=== PATIENT | female | born 1930 | race Caucasian/White ===

== ENCOUNTER → 2019-07-06 | Outpatient (CLI) | payer OTHER ==
[~2019-07-06] MED LIST: AMLO10TA7 PO; ASPI81TA40 PO; ATOR40TA71 PO; CALC-1085 PO; CHOL50004 PO; CLOP75TA32 PO; DOCU-116 PO; FOLI1TAB15 PO; LABE200T5 PO; LEVO75TA4 PO; LOSA50TA64 PO; VITA100049 PO
== END | disposition home or self-care (01) ==
LOC: RAH 14:38
PROVIDERS: ATTEND Internal Medicine
DX: N63.13 Unspecified lump in the right breast, lower outer quadrant (principal); N63.10 Unspecified lump in the right breast, unspecified quadrant; Z85.3 Personal history of malignant neoplasm of breast
CPT/HCPCS: 76641; 77065

== ENCOUNTER → 2019-07-20 | Outpatient (CLI) | payer OTHER ==
[2019-07-20 10:13] LABS: BASOPHILS % (AUTO) 0.9 % (0.0-5.0); EOSINOPHILS % (AUTO) 5.9 % (0.0-8.0); HEMATOCRIT 36.4 % (36-48); LYMPHOCYTES % (AUTO) 18.2 % (21.0-51.0); MEAN CORPUSCULAR HEMOGLOBIN 28.6 pg (27.0-33.0); MEAN CORPUSCULAR HGB CONC 30.8 g/dL (32.0-36.0); MEAN CORPUSCULAR VOLUME 93.1 fL (79-99); MONOCYTES % (AUTO) 7.5 % (3.0-13.0); PLATELET COUNT (AUTO) 163 K/uL (130-400); RED BLOOD CELL COUNT(AUTO) 3.91 MIL/uL (4.00-5.50); RED CELL DISTRIBUTION WIDTH 13.7 % (11.0-15.5); WHITE BLOOD COUNT (AUTO) 4.4 K/uL (4.8-10.8)
[2019-07-20 10:24] LABS: INR 0.99 (0.85-1.15); PARTIAL THROMBOPLASTIN TIME 27.6 SEC (26.3-35.5); PROTHROMBIN TIME 10.4 SEC (9.6-11.6)
[2019-07-20 10:34] LABS: ALBUMIN 3.4 g/dL (3.5-5.0); BILIRUBIN,TOTAL 0.7 mg/dL (0.2-1.0); CREATININE 1.4 mg/dL (0.5-1.5); POTASSIUM 4.9 mmol/L (3.5-5.1); THYROID STIMULATING HORMONE 6.79 uIU/mL (0.36-3.74); TOTAL PROTEIN, SERUM 6.2 g/dL (6.0-8.3)
--- NOTE | 2019-07-20 11:45 | NUR ---
U/S GUIDED BIOPSY RIGHT BREAST LUMP PROCEDURE PERFORMED BY DR. ESPINAL. PUNCTURE SITE RIGHT BREAST 6 O'CLOCK AREA. PATIENT TOLERATED PROCEDURE WELL. SPECIMEN X 3 COLLECTED. END OF PROCEDURE AT 1150. TISSUE MARKER PLACED TO SITE, BIOPSY NEEDLE REMOVED AND DRESSING APPLIED. NO BLEEDING NOTED. DISCHARGE INSTRUCTIONS GIVEN TO PATIENT AND FAMILY. PT DISCHARGED AMBULATORY, STABLE, AAO X 3, WITH NO C/O PAIN. SPECIMEN SENT TO LAB.
[2019-07-20 14:52] LABS: HEMOGLOBIN A1C 5.3 % (4.0-6.0)
== END ==
LOC: RAH 09:23
PROVIDERS: ATTEND Internal Medicine
DX: N63.15 Unspecified lump in the right breast, overlapping quadrants (principal); Z79.82 Long term (current) use of aspirin; Z79.899 Other long term (current) drug therapy; Z82.49 Family history of ischemic heart disease and other diseases of the circulatory system; Z82.3 Family history of stroke
CPT/HCPCS: 19083; 36415; 80053; 80061; 82043; 83036; 84443; 85025; 85610; 85730; A4215 ×3

== ENCOUNTER → 2019-08-24 | Outpatient (CLI) | payer OTHER ==
[~2019-08-24] MED LIST changes: +REGADENOSON 0.4 MG/5 ML PF SYG IVP SCH
== END | disposition home or self-care (01) ==
LOC: SHCH 09:07
PROVIDERS: ATTEND Internal Medicine Cardiovascular Disease
DX: Z01.810 Encounter for preprocedural cardiovascular examination (principal); I25.10 Atherosclerotic heart disease of native coronary artery without angina pectoris
CPT/HCPCS: 78452; 93017; 96374; A9500 ×2; J2785

== ENCOUNTER 2019-09-13 17:44 | Inpatient (IN) | payer OTHER ==
[~2019-09-13] VITALS: Ht 167.6 cm; Wt 59.8 kg
[~2019-09-13 17:44] MED LIST changes: -REGADENOSON 0.4 MG/5 ML PF SYG IVP SCH
[2019-09-13] MEDS ORDERED: ONDANSETRON HCL 4 MG/2 ML VIAL ONE (17:56)
[2019-09-13] MEDS ORDERED: AZITHROMYCIN 500MG+NS 250ML 250 ML IV ONE (17:57)
[2019-09-13] MEDS ORDERED: SODIUM CHLORIDE 0.9% 1000ML 1,000 ML IV ONE (17:57)
[2019-09-13] MEDS ORDERED: CEFTRIAXONE SODIUM 2 GM VIAL ONE (17:57)
[2019-09-13 18:16] LABS: BASOPHILS % (AUTO) 0.1 % (0.0-5.0); EOSINOPHILS % (AUTO) 0.6 % (0.0-8.0); HEMATOCRIT 38.2 % (36-48); LYMPHOCYTES % (AUTO) 7.4 % (21.0-51.0); MEAN CORPUSCULAR HEMOGLOBIN 28.1 pg (27.0-33.0); MEAN CORPUSCULAR HGB CONC 31.4 g/dL (32.0-36.0); MEAN CORPUSCULAR VOLUME 89.5 fL (79-99); MONOCYTES % (AUTO) 5.4 % (3.0-13.0); NEUTROPHILS % (AUTO) 86.1 % (40.0-77.0); PLATELET COUNT (AUTO) 210 K/uL (130-400); RED BLOOD CELL COUNT(AUTO) 4.27 MIL/uL (4.00-5.50); RED CELL DISTRIBUTION WIDTH 13.2 % (11.0-15.5); WHITE BLOOD COUNT (AUTO) 6.9 K/uL (4.8-10.8)
[2019-09-13] MEDS ORDERED: IPRATROPIUM/ALBUTEROL SULFATE 3 ML SOLUTION IH ONE ×2 (18:30→19:45)
[2019-09-13 18:31] LABS: INR 0.94 (0.85-1.15); PARTIAL THROMBOPLASTIN TIME 33.8 SEC (26.3-35.5); PROTHROMBIN TIME 10.2 SEC (9.6-11.6)
[2019-09-13 18:32] LABS: CARBON DIOXIDE 22 mmol/L (21-32); CHLORIDE 104 mmol/L (101-111); CREATININE 1.5 mg/dL (0.5-1.5); GLOMERULAR FILTR. RATE CALC 35 mL/min (>60); GLUCOSE,RANDOM 122 mg/dL (70-105); POTASSIUM 3.9 mmol/L (3.5-5.1); SODIUM SERUM 141 mmol/L (136-145); UREA NITROGEN, BLOOD 33 mg/dL (7-18)
[2019-09-13] MEDS ORDERED: METHYLPREDNISOLONE SOD SUCC 125MG/2ML VIAL ONE (18:38)
[2019-09-13 18:43] LABS: ALANINE AMINOTRANSFERASE 20 U/L (12-78); ALBUMIN 3.5 g/dL (3.5-5.0); ASPARTATE AMINOTRANSFERASE 22 U/L (10-37); BILIRUBIN,TOTAL 0.4 mg/dL (0.2-1.0); CREATINE KINASE, TOTAL 43 U/L (21-232); MYOGLOBIN 102 ng/mL (10-92); TOTAL PROTEIN, SERUM 7.1 g/dL (6.0-8.3); TROPONIN I < 0.04 ng/mL (0.00-0.06)
[2019-09-13 18:47] LABS: ABG BASE EXCESS -5.8 mmol/L (-2.0-3.0); ABG HCO3 18.5 mmol/L (21.0-28.0); ABG OXYGEN SATURATION 93.2 % (95.0-99.0); ABG PCO2 33 mmHg (32-45)
[2019-09-13] MEDS ORDERED: LABETALOL 20 MG/4 ML DISP.SYRIN IV ONE (19:06)
[2019-09-13] MEDS ORDERED: OSELTAMIVIR PHOSPHATE 75 MG CAP ONE (19:34)
[2019-09-13 19:37] LABS: BAND NEUTROPHILS % (MANUAL) 7 % (0-2); EOSINOPHILS % (MANUAL) 1 % (1-6); LYMPHOCYTES % (MANUAL) 7 % (22-44); MONOCYTES % (MANUAL) 6 % (2-9); SEGMENTED NEUTROPHILS % 79 % (40-70)
[2019-09-13 19:38] LABS: MAN.DIFF COMMENT-IMPRESSION MANUAL DIFFERENTIAL; PLATELET MORPHOLOGY COMMENT ADEQUATE
[2019-09-13 19:45] LABS: APPEARANCE,URINE Cloudy (CLEAR); BILIRUBIN,URINE Negative (NEGATIVE); COLOR,URINE Yellow (YELLOW); GLUCOSE, URINE (UA) Negative (NEGATIVE); KETONES,URINE Trace mg/dL (NEGATIVE); LEUKOCYTE ESTERASE ,URINE Trace (NEGATIVE); NITRATE,URINE Negative (NEGATIVE); OCCULT BLOOD,URINE Negative (NEGATIVE); PROTEIN,URINE POS 1+ mg/dL (NEGATIVE); UROBILINOGEN,URINE 0.2 mg/dL (0.2-1.0)
[2019-09-13 20:27] LABS: BACTERIA,URINE Few /HPF (None Seen); RBC,URINE None Seen /HPF (0-1)
[2019-09-13 20:28] LABS: AMORPHOUS SEDIMENT,UR Few /LPF (None Seen)
[2019-09-13] MEDS ORDERED: ONDANSETRON HCL 4 MG/2 ML VIAL IV PRN (20:45)
[2019-09-13] MEDS ORDERED: MORPHINE SULFATE 2 MG/ML 1ML SYG IV PRN (20:45)
[2019-09-13] MEDS ORDERED: HYDRALAZINE HCL 20 MG/ML VIAL IV PRN (20:45)
[2019-09-13] MEDS ORDERED: LACTULOSE 20 GM/30 ML UDCUP PO PRN (20:45)
[2019-09-13] MEDS ORDERED: AZITHROMYCIN 500MG+NS 250ML 250 ML IV SCH (20:45)
[2019-09-13] MEDS ORDERED: CEFTRIAXONE SODIUM 1 GM IV SCH (20:45)
[2019-09-13] MEDS ORDERED: ACETAMINOPHEN 325 MG TAB PO PRN ×2 (20:45)
[2019-09-13] MEDS: METHYLPREDNISOLONE SOD SUCC 125MG/2ML VIAL IV SCH (20:45)
[2019-09-13] MEDS: OSELTAMIVIR PHOSPHATE 75 MG CAP PO SCH (21:00)
[2019-09-13] MEDS: FAMOTIDINE 20MG TAB 20 MG TAB PO SCH (21:00)
[2019-09-13] MEDS: IPRATROPIUM/ALBUTEROL SULFATE 3 ML SOLUTION IH SCH (22:16)
[2019-09-13] MEDS ORDERED: FAMOTIDINE 20MG TAB 20 MG TAB ONE (22:37)
[2019-09-13] MEDS ORDERED: ACETAMINOPHEN 325 MG TAB ONE (22:37)
[2019-09-13] MEDS ORDERED: IOHEXOL-350 75 ML VIAL IV ONE (23:16)
[2019-09-14] MEDS ORDERED: HEPARIN 25000 UNITS/250 ML D5W 250 ML IV SCH
[2019-09-14] MEDS ORDERED: HEPARIN 25000 UNITS/250 ML D5W 250 ML IV ONE (00:28)
[2019-09-14] MEDS ORDERED: HEPARIN SODIUM 5000UNIT/ML 1ML VIAL ONE (00:46)
[2019-09-14] MEDS: IPRATROPIUM/ALBUTEROL SULFATE 3 ML SOLUTION IH SCH ×6 (02:00→21:31)
[2019-09-14 04:05] LABS: ABG BASE EXCESS -6.9 mmol/L (-2.0-3.0); ABG HCO3 16.9 mmol/L (21.0-28.0); ABG OXYGEN SATURATION 97.4 % (95.0-99.0); ABG PCO2 30 mmHg (32-45)
[2019-09-14 05:44] LABS: BASOPHILS % (AUTO) 0.1 % (0.0-5.0); LYMPHOCYTES % (AUTO) 2.6 % (21.0-51.0); MEAN CORPUSCULAR HGB CONC 31.7 g/dL (32.0-36.0); MEAN CORPUSCULAR VOLUME 88.5 fL (79-99); MONOCYTES % (AUTO) 3.9 % (3.0-13.0); NEUTROPHILS % (AUTO) 93.2 % (40.0-77.0); PLATELET COUNT (AUTO) 184 K/uL (130-400); RED BLOOD CELL COUNT(AUTO) 4.07 MIL/uL (4.00-5.50); RED CELL DISTRIBUTION WIDTH 13.2 % (11.0-15.5); WHITE BLOOD COUNT (AUTO) 8.6 K/uL (4.8-10.8)
[2019-09-14 06:16] LABS: CREATININE 1.3 mg/dL (0.5-1.5); POTASSIUM 4.1 mmol/L (3.5-5.1)
[2019-09-14] MEDS ORDERED: HYDRALAZINE HCL 20 MG/ML VIAL ONE (06:29)
[2019-09-14 07:18] LABS: INR 1.06 (0.85-1.15); PROTHROMBIN TIME 11.4 SEC (9.6-11.6)
[2019-09-14] MEDS ORDERED: METHYLPREDNISOLONE SOD SUCC 40MG/ML 1ML ONE (07:22)
[2019-09-14] MEDS ORDERED: OSELTAMIVIR PHOSPHATE 75 MG CAP ONE (07:23)
[2019-09-14] MEDS ORDERED: FAMOTIDINE 20MG TAB 20 MG TAB ONE (07:25)
[2019-09-14 07:54] LABS: PARTIAL THROMBOPLASTIN TIME > 120.0 SEC (26.3-35.5)
[2019-09-14] MEDS: METHYLPREDNISOLONE SOD SUCC 125MG/2ML VIAL IV SCH (08:45)
[2019-09-14] MEDS: OSELTAMIVIR PHOSPHATE 75 MG CAP PO SCH ×2 (09:00→20:23)
[2019-09-14] MEDS: FAMOTIDINE 20MG TAB 20 MG TAB PO SCH ×2 (09:00→20:23)
[2019-09-14] MEDS ORDERED: IPRATROPIUM/ALBUTEROL SULFATE 3 ML SOLUTION IH ONE (10:02)
[2019-09-14 12:00] VITALS: BP 130/46
--- NOTE | 2019-09-14 12:03 | NUR ---
ARRIVAL TO FLOOR ROOM 203. PT IS AAOX3 DENIES CP DENIES SOB DENIES NV. STATES SHE FEELS BETTER THAN LAST NIGHT. ARRIVED WITH HEPARIN GTT PER PROTOCOL. PAPER DOCUMENTATION NOTED IN CHART. PTT RECHECK ORDERED FOR 1500.
--- NOTE | 2019-09-14 12:04 | NUR ---
NOTED RIGHT SIDE CHEST EARNEST DRAIN IN PLACED SUTURED IN PLACE. STATES THAT EARNEST DRAIN IS FROM MASTECTOMY FROM SEP [address] GUTIERREZ. Addendum: 09/14/19 at 1210 by CHRISTY GRIGGS RN RN NOTED RIGHT SIDE CHEST EARNEST DRAIN IN PLACE
--- NOTE | 2019-09-14 12:40 | NUR ---
NOTIFIED DR GUTIERREZ OFFICE REGARDING PATIENT HOSPITALIZED YET HAS APPOINTMENT TOMORROW 09-15-19 FOR FOLLOW UP OF RIGHT MASTECTOMY AND EARNEST DRAIN DR GUTIERREZ OFFICE STAFF MADE AWARE
[2019-09-14] MEDS ORDERED: LOSA100T58 PO (12:54)
[2019-09-14] MEDS ORDERED: BETA15OI19 TP (12:54)
[2019-09-14 15:39] VITALS: BP 143/55
--- NOTE | 2019-09-14 16:09 | NUR ---
HEPARIN GTT ON HOLD FOR 1 HR PER PROTOCOL
--- NOTE | 2019-09-14 16:44 | NUR ---
DR GUTIERREZ PA ROUNDED SAW PATIENT, STATES SHE WILL COME BY TOMORROW TO REMOVE EARNEST DRAIN
--- NOTE | 2019-09-14 17:06 | NUR ---
INITIAL Patient lives with alone. Emergency contact is daughter, Karoline Jones, [phone]. No home services. DME: BPM, cane, standard walker, nebulizer. Patient is able to complete ADL's and drives. PCP is Dr. Cuevas. Pharmacy is [facility] located on [facility]. DCP is home. Addendum: 09/14/19 at 1709 by AKIL HUSAIN SS Amended: Links added.
[2019-09-14] MEDS: BUDESONIDE 0.5 MG/2 ML INH IH SCH (18:37)
[2019-09-14] MEDS: AZITHROMYCIN 500MG+NS 250ML 250 ML IV SCH (20:23)
[2019-09-14] MEDS: CEFTRIAXONE SODIUM 1 GM IV SCH (20:24)
[2019-09-14 20:36] VITALS: BP 133/54
--- NOTE | 2019-09-14 21:20 | NUR ---
hospitalist paged regarding home med reconciliation
[2019-09-15] VITALS (7 sets, daily range): BP systolic 124–190; BP diastolic 50–77
[2019-09-15] MEDS: IPRATROPIUM/ALBUTEROL SULFATE 3 ML SOLUTION IH SCH ×5 (01:12→21:23)
[2019-09-15] MEDS: BUDESONIDE 0.5 MG/2 ML INH IH SCH ×2 (05:04→18:31)
[2019-09-15] MEDS: FAMOTIDINE 20MG TAB 20 MG TAB PO SCH (09:16)
[2019-09-15] MEDS: OSELTAMIVIR PHOSPHATE 75 MG CAP PO SCH ×2 (09:17→20:12)
--- NOTE | 2019-09-15 10:30 | NUR ---
RECEIVED REPORT FROM JARROD KINGSLEY AND TOOK OVER CARE OF PATIENT.
--- NOTE | 2019-09-15 11:00 | NUR ---
SITE CARE COMPLETED TO LEFT ARM AREA IV, IV SITE WITHOUT REDNESS NOTED. PT ON HEPARIN DRIP, NEXT PTT AT 2PM.
--- NOTE | 2019-09-15 14:33 | NUR ---
HEPARIN DRIP DISCONTINUED PER DR. ROBBINS'S ORDER. WILL START LOVENOX TONIGHT. PATIENT INFORMED AND VERBALIZED UNDERSTANDING.
[2019-09-15] MEDS ORDERED: ENOXAPARIN SODIUM 60 MG/0.6 ML SQ SCH ×2 (15:00→21:00)
--- NOTE | 2019-09-15 16:30 | NUR ---
DR. GUTIERREZ I TO SEE PATIENT, UPDATE GIVEN. EARNEST DRAIN REMOVED BY DR. GUTIERREZ. TOLERATED WELL.
[2019-09-15] MEDS: CEFTRIAXONE SODIUM 1 GM IV SCH (20:11)
[2019-09-15] MEDS: AZITHROMYCIN 500MG+NS 250ML 250 ML IV SCH (20:11)
--- NOTE | 2019-09-15 21:22 | NUR ---
patient c/o back pain p lovenox inj patient c/o right lower back pain after lovenox was injected into left lower abdomen bp 156/62 st 113s oxygen sat 98% assess back and did not find any signs of bruising
[2019-09-16] MEDS: IPRATROPIUM/ALBUTEROL SULFATE 3 ML SOLUTION IH SCH ×6 (01:05→21:34)
[2019-09-16 02:38] LABS: ALBUMIN 2.5 g/dL (3.5-5.0); BILIRUBIN,TOTAL 0.2 mg/dL (0.2-1.0); CREATININE 1.5 mg/dL (0.5-1.5); POTASSIUM 3.4 mmol/L (3.5-5.1); TOTAL PROTEIN, SERUM 5.7 g/dL (6.0-8.3)
[2019-09-16 03:50] VITALS: BP 162/64
[2019-09-16 05:45] LABS: BASOPHILS % (AUTO) 0.2 % (0.0-5.0); EOSINOPHILS % (AUTO) 0.7 % (0.0-8.0); HEMATOCRIT 31.3 % (36-48); LYMPHOCYTES % (AUTO) 5.6 % (21.0-51.0); MEAN CORPUSCULAR HEMOGLOBIN 28.9 pg (27.0-33.0); MEAN CORPUSCULAR HGB CONC 32.9 g/dL (32.0-36.0); MEAN CORPUSCULAR VOLUME 87.7 fL (79-99); MONOCYTES % (AUTO) 4.8 % (3.0-13.0); NEUTROPHILS % (AUTO) 87.5 % (40.0-77.0); PLATELET COUNT (AUTO) 245 K/uL (130-400); RED BLOOD CELL COUNT(AUTO) 3.57 MIL/uL (4.00-5.50); RED CELL DISTRIBUTION WIDTH 13.6 % (11.0-15.5); WHITE BLOOD COUNT (AUTO) 10.5 K/uL (4.8-10.8)
[2019-09-16] MEDS: BUDESONIDE 0.5 MG/2 ML INH IH SCH ×2 (07:27→19:03)
[2019-09-16 07:57] VITALS: BP 146/57
[2019-09-16] MEDS ORDERED: ENOXAPARIN SODIUM 60 MG/0.6 ML SQ SCH (09:00)
[2019-09-16] MEDS: OSELTAMIVIR PHOSPHATE 75 MG CAP PO SCH ×2 (09:02→20:25)
[2019-09-16] MEDS: FAMOTIDINE 20MG TAB 20 MG TAB PO SCH ×2 (09:02→21:00)
[2019-09-16] MEDS: LABETALOL HCL 200 MG TABLET PO SCH ×2 (09:08→20:26)
[2019-09-16] MEDS: LEVOTHYROXINE 75 MCG TABLET PO SCH (09:09)
[2019-09-16] MEDS: POTASSIUM CHLORIDE 20 MEQ ERTAB PO SCH (09:10)
--- NOTE | 2019-09-16 11:45 | NUR ---
BLADDER SCANNED PRE VOID MEASUREMENT 636MLS DR. GARCIA AWARE.
[2019-09-16 11:51] VITALS: BP 152/66
--- NOTE | 2019-09-16 11:58 | NUR ---
PT WAS BLADDER SCANNED POST-VOID RESD. 480ML DR. JACKSON CONSULTED FOR URINARY RETENTION.
--- NOTE | 2019-09-16 12:22 | NUR ---
RD NOTIFICATION DIET: HEART HEALTHY. PO INTAKE 50% AND HAS GOOD APPETITE PER PT. NO SIGNIFICANT WEIGHT CHANGES NOTED IN THE PAST, THEREFORE RD UNABLE TO DETERMINE MALNUTRITION STATUS AT THIS TIME. NO COMPLAINTS OF N/V/C/D AT THIS TIME. NO DIFFICULTIES CHEWING OR SWALLOWING FOOD/ LIQUIDS AT THIS TIME. LABS REVIEWED. MEDS REVIEWED. SKIN IS INTACT. RD RECOMMENDS TO ADD ENSURE BID TO DIET ORDER RD WILL CONTINUE TO MONITOR PO INTAKE AND WEIGHT CHANGES Addendum: 09/16/19 at [address] Amended: Links added.
[2019-09-16 14:13] LABS: MEAN CORPUSCULAR HEMOGLOBIN 27.9 pg (27.0-33.0); MEAN CORPUSCULAR HGB CONC 31.6 g/dL (32.0-36.0); MEAN CORPUSCULAR VOLUME 88.4 fL (79-99); PLATELET COUNT (AUTO) 222 K/uL (130-400); RED BLOOD CELL COUNT(AUTO) 3.62 MIL/uL (4.00-5.50); RED CELL DISTRIBUTION WIDTH 13.6 % (11.0-15.5); WHITE BLOOD COUNT (AUTO) 11.1 K/uL (4.8-10.8)
[2019-09-16 15:48] VITALS: BP 150/68
[2019-09-16 20:23] VITALS: BP 195/73
[2019-09-16] MEDS: VITAMIN E 400 UNIT CAPSULE PO SCH (20:25)
[2019-09-16] MEDS: DOCUSATE SODIUM 100 MG CAP PO SCH (20:25)
[2019-09-16] MEDS: ATORVASTATIN CALCIUM 40 MG TABLET PO SCH (20:25)
[2019-09-16] MEDS: FOLIC ACID 1 MG TABLET PO SCH (20:25)
[2019-09-16] MEDS: CALCIUM 600 + VITAMIN D 400 TABLET PO SCH (20:25)
[2019-09-16] MEDS: CEFTRIAXONE SODIUM 1 GM IV SCH (20:26)
[2019-09-16] MEDS: CLOPIDOGREL BISULFATE 75 MG TAB PO SCH (20:26)
[2019-09-16] MEDS: APIXABAN 5 MG TABLET PO SCH ×2 (20:26→20:35)
[2019-09-16] MEDS: AZITHROMYCIN 500MG+NS 250ML 250 ML IV SCH (20:27)
[2019-09-16] MEDS: ***HM***(Cholecalciferol (Vitamin D3) 5,000 UNIT) PO SCH (21:00)
--- NOTE | 2019-09-16 21:35 | NUR ---
refused shirley /keyshawn consult dr mahajan called for update/info on patient informed dr mahajan that patient was refusing shirley catheter he stated that was fine but that if she started to have trouble that we may insert an indwelling shirley catheter explained to patient but she refused
[2019-09-16 23:56] VITALS: BP 167/62
[2019-09-17] MEDS: IPRATROPIUM/ALBUTEROL SULFATE 3 ML SOLUTION IH SCH ×6 (01:57→22:22)
[2019-09-17 03:52] VITALS: BP 159/72
[2019-09-17] MEDS: LEVOTHYROXINE 75 MCG TABLET PO SCH (06:07)
[2019-09-17] MEDS: BUDESONIDE 0.5 MG/2 ML INH IH SCH ×2 (06:59→19:06)
[2019-09-17 07:56] VITALS: BP 169/81
[2019-09-17] MEDS: FAMOTIDINE 20MG TAB 20 MG TAB PO SCH ×2 (09:00→21:00)
[2019-09-17] MEDS: OSELTAMIVIR PHOSPHATE 75 MG CAP PO SCH ×2 (09:16→21:15)
[2019-09-17] MEDS: POTASSIUM CHLORIDE 20 MEQ ERTAB PO SCH (09:17)
[2019-09-17] MEDS: LABETALOL HCL 200 MG TABLET PO SCH ×2 (09:17→21:13)
[2019-09-17] MEDS: APIXABAN 5 MG TABLET PO SCH ×2 (09:18→21:14)
[2019-09-17 11:37] VITALS: BP 145/67
--- NOTE | 2019-09-17 12:00 | NUR ---
PT CARE Using aseptic technique, 16fr shirley catheter inserted with immediate return of cloudy, light julia urine. Pt tolerated with minimal discomfort. Secure to right thigh with stat-geoffrey.
[2019-09-17] MEDS: LINEZOLID 600 MG/ISO-OSM 300 ML IV SCH ×2 (12:20→22:51)
[2019-09-17] MEDS: PHARMACY COMMUNICATION MISC SCH ×2 (12:34→20:34)
--- NOTE | 2019-09-17 13:17 | NUR ---
Nutrition Follow-up: Pt. on Heart Healthy diet with Ensure BID. Pt. reports eating 50-75% of her meals. Labs reviewed(Alb 2.5). SR-17, elastic. LBM: 09/17/2019. Pt. educated on High Calorie High Protein diet and provided with education material. Pt. verbalized understanding. Recommendations: 1) Continue current diet. 2) High Calorie High protein diet education given to patient. 3) Continue to monitor pt's nutritional status. 4) Consult RD as nutrition concerns arise. Addendum: 09/17/19 at 1326 [address] AKIL NÚÑEZ RD Amended: Links added.
[2019-09-17 15:33] VITALS: BP 151/55
--- NOTE | 2019-09-17 18:09 | NUR ---
cm note met with patient and updated on md orders for rehab and iv antibiotic therapy. pt is in agreement and states has been at [facility] in the past and prefers [facility]. choice letter obtained. states she will update her family on plan.
[2019-09-17 20:28] VITALS: BP 162/58
[2019-09-17 20:29] VITALS: BP 182/75
[2019-09-17] MEDS: ***HM***(Cholecalciferol (Vitamin D3) 5,000 UNIT) PO SCH (21:00)
[2019-09-17] MEDS: DOCUSATE SODIUM 100 MG CAP PO SCH (21:00)
[2019-09-17] MEDS: ATORVASTATIN CALCIUM 40 MG TABLET PO SCH (21:14)
[2019-09-17] MEDS: CALCIUM 600 + VITAMIN D 400 TABLET PO SCH (21:14)
[2019-09-17] MEDS: LOSARTAN 100 MG TABLET PO SCH (21:15)
[2019-09-17] MEDS: VITAMIN E 400 UNIT CAPSULE PO SCH (21:15)
[2019-09-17] MEDS: CLOPIDOGREL BISULFATE 75 MG TAB PO SCH (21:15)
[2019-09-17] MEDS: FOLIC ACID 1 MG TABLET PO SCH (21:16)
[2019-09-17] MEDS: AMLODIPINE BESYLATE 5 MG TAB PO SCH (21:17)
--- NOTE | 2019-09-17 21:30 | NUR ---
PT IS FORGETFUL AND HARD OF HEARING. ONE MUST REPEAT MEDICATION NAMES, AND USE OF MEDICATION TO PT MULTIPLE TIMES. CONTINUES TO ASK ABOUT MEDICATIONS WHICH HAVE ALREADY BEEN DISCUSSED WITH PT PRIOR ADMINISTRATION AND PT IS INDIVIDUALLY TAKING THEM.
[2019-09-18 00:33] VITALS: BP 123/71
[2019-09-18] MEDS: IPRATROPIUM/ALBUTEROL SULFATE 3 ML SOLUTION IH SCH ×6 (01:57→21:49)
[2019-09-18 04:23] VITALS: BP 141/51
[2019-09-18 04:29] LABS: BASOPHILS % (AUTO) 0.4 % (0.0-5.0); HEMATOCRIT 29.6 % (36-48); MEAN CORPUSCULAR HEMOGLOBIN 28.1 pg (27.0-33.0); MEAN CORPUSCULAR HGB CONC 32.1 g/dL (32.0-36.0); MEAN CORPUSCULAR VOLUME 87.6 fL (79-99); MONOCYTES % (AUTO) 11.6 % (3.0-13.0); NEUTROPHILS % (AUTO) 74.2 % (40.0-77.0); PLATELET COUNT (AUTO) 236 K/uL (130-400); RED BLOOD CELL COUNT(AUTO) 3.38 MIL/uL (4.00-5.50); RED CELL DISTRIBUTION WIDTH 13.6 % (11.0-15.5); WHITE BLOOD COUNT (AUTO) 7.7 K/uL (4.8-10.8)
[2019-09-18] MEDS: PHARMACY COMMUNICATION MISC SCH ×3 (04:34→20:34)
[2019-09-18] MEDS: LEVOTHYROXINE 75 MCG TABLET PO SCH (06:12)
[2019-09-18 07:06] LABS: CREATININE 1.3 mg/dL (0.5-1.5); MAGNESIUM 2.1 mg/dL (1.80-2.40); POTASSIUM 4.3 mmol/L (3.5-5.1)
[2019-09-18] MEDS: LINEZOLID 600 MG/ISO-OSM 300 ML IV SCH ×2 (07:09→21:50)
[2019-09-18] MEDS: OSELTAMIVIR PHOSPHATE 75 MG CAP PO SCH (07:10)
[2019-09-18] MEDS: APIXABAN 5 MG TABLET PO SCH ×2 (07:10→21:43)
[2019-09-18] MEDS: LABETALOL HCL 200 MG TABLET PO SCH ×2 (07:10→21:43)
[2019-09-18] MEDS: FAMOTIDINE 20MG TAB 20 MG TAB PO SCH ×2 (07:12→21:00)
[2019-09-18] MEDS: POTASSIUM CHLORIDE 20 MEQ ERTAB PO SCH (07:12)
[2019-09-18] MEDS: BUDESONIDE 0.5 MG/2 ML INH IH SCH ×2 (07:19→17:45)
[2019-09-18 07:30] VITALS: BP 154/53
--- NOTE | 2019-09-18 08:00 | NUR ---
ASSESSMENT PT IS AAOX3 DENIES CP DENIES SOB DENIES NV NO COMPLAINTS AT THIS TIME SITTING UPRIGHT IN BED. AM MEDS GIVEN NO COMPLAINTS, ATE BREAKFAST, NO COMPLAINTS. CALL LIGHT WITHIN REACH.
[2019-09-18 11:30] VITALS: BP 120/45
--- NOTE | 2019-09-18 12:18 | NUR ---
PT DB BAÑUELOS. PATIENT PRESENTS WITH DECREASED STRENGTH AND IMPAIRED TRANSFER TECHNIQUE, REQUIRING ASSISTANCE. SHE IS NOTED WITH IMPAIRED GAIT QUALITY AND BALANCE, REQUIRING ASSISTANCE FOR ALL OUT OF BED ACTIVITIES. PATIENT REQUIRES ASSISTANCE FOR ALL ADL'S THEREFORE IS UNSAFE TO RETURN TO HOME SETTING SHE LIVES ALONE. PATIENT REQUIRES HIGHER LEVEL OF REHAB FOR EVENTUAL RETURN TO HOME. Addendum: 09/18/19 at 1222 by IRAIDA BOWMAN PT Amended: Links added.
[2019-09-18 15:30] VITALS: BP 147/62
[2019-09-18 20:32] VITALS: BP 151/59
[2019-09-18] MEDS: ***HM***(Cholecalciferol (Vitamin D3) 5,000 UNIT) PO SCH (21:00)
[2019-09-18] MEDS: AMLODIPINE BESYLATE 5 MG TAB PO SCH (21:41)
[2019-09-18] MEDS: ATORVASTATIN CALCIUM 40 MG TABLET PO SCH (21:41)
[2019-09-18] MEDS: VITAMIN E 400 UNIT CAPSULE PO SCH (21:43)
[2019-09-18] MEDS: DOCUSATE SODIUM 100 MG CAP PO SCH (21:43)
[2019-09-18] MEDS: LOSARTAN 100 MG TABLET PO SCH (21:43)
[2019-09-18] MEDS: CLOPIDOGREL BISULFATE 75 MG TAB PO SCH (21:43)
[2019-09-18] MEDS: CALCIUM 600 + VITAMIN D 400 TABLET PO SCH (21:43)
[2019-09-18] MEDS: FOLIC ACID 1 MG TABLET PO SCH (21:44)
--- NOTE | 2019-09-18 22:00 | NUR ---
PT NOTED TO HAVE INCREASED COUGH. GIVEN ROBITUSSIN X1 DOSE. ABLE TO TAKE MEDICATIONS DIRECTED. INQUIRED ABOUT TAMILFLU BEING DISCONTINUED.
[2019-09-18] MEDS ORDERED: GUAIFENESIN-DM 200/20 MG 10 ML ONE (23:31)
[2019-09-19] VITALS: BP 145/61
[2019-09-19] MEDS: IPRATROPIUM/ALBUTEROL SULFATE 3 ML SOLUTION IH SCH ×7 (01:21→22:12)
[2019-09-19 04:00] VITALS: BP 139/51
[2019-09-19 04:50] LABS: BASOPHILS % (AUTO) 0.3 % (0.0-5.0); EOSINOPHILS % (AUTO) 3.8 % (0.0-8.0); HEMATOCRIT 29.5 % (36-48); LYMPHOCYTES % (AUTO) 10.1 % (21.0-51.0); MEAN CORPUSCULAR HEMOGLOBIN 27.8 pg (27.0-33.0); MEAN CORPUSCULAR HGB CONC 31.9 g/dL (32.0-36.0); MEAN CORPUSCULAR VOLUME 87.3 fL (79-99); MONOCYTES % (AUTO) 9.8 % (3.0-13.0); NEUTROPHILS % (AUTO) 71.5 % (40.0-77.0); PLATELET COUNT (AUTO) 257 K/uL (130-400); RED BLOOD CELL COUNT(AUTO) 3.38 MIL/uL (4.00-5.50); RED CELL DISTRIBUTION WIDTH 13.7 % (11.0-15.5); WHITE BLOOD COUNT (AUTO) 6.8 K/uL (4.8-10.8)
[2019-09-19] MEDS: BUDESONIDE 0.5 MG/2 ML INH IH SCH ×2 (05:00→19:05)
[2019-09-19 05:04] LABS: CREATININE 1.2 mg/dL (0.5-1.5); POTASSIUM 4.3 mmol/L (3.5-5.1)
[2019-09-19] MEDS: LEVOTHYROXINE 75 MCG TABLET PO SCH (05:34)
[2019-09-19] MEDS: LINEZOLID 600 MG/ISO-OSM 300 ML IV SCH ×2 (07:18→19:35)
[2019-09-19] MEDS: POTASSIUM CHLORIDE 20 MEQ ERTAB PO SCH (07:19)
[2019-09-19] MEDS: FAMOTIDINE 20MG TAB 20 MG TAB PO SCH ×2 (07:19→21:00)
[2019-09-19] MEDS: LABETALOL HCL 200 MG TABLET PO SCH ×2 (07:19→21:13)
[2019-09-19] MEDS: APIXABAN 5 MG TABLET PO SCH ×2 (07:19→21:15)
[2019-09-19 07:30] VITALS: BP 158/62
--- NOTE | 2019-09-19 08:00 | NUR ---
ASSESSMENT PT IS AAOX3 DENIES CP DENIES SOB DENIES NV NO COMPLAINTS, RESTING SITTING UPRIGHT IN BED. ISOLATION PRECAUTIONS IN PLACE. CALL LIGHT WITHIN REACH.
[2019-09-19 11:30] VITALS: BP 128/49
--- NOTE | 2019-09-19 12:00 | NUR ---
cm note referral faxed to andres bermudez, production superintendent liason, [facility] will evaluate pt on friday.received referral.
--- NOTE | 2019-09-19 14:00 | NUR ---
STATUS UP IN CHAIR FOR MOST OF MORNING, ASSISTED BACK TO BED. NO COMPLAINTS. CALL LIGHT WITHIN REACH.
[2019-09-19 15:30] VITALS: BP 152/65
[2019-09-19 20:10] VITALS: BP 153/63
[2019-09-19] MEDS: ***HM***(Cholecalciferol (Vitamin D3) 5,000 UNIT) PO SCH (21:00)
[2019-09-19] MEDS: DOCUSATE SODIUM 100 MG CAP PO SCH (21:00)
[2019-09-19] MEDS: CLOPIDOGREL BISULFATE 75 MG TAB PO SCH (21:12)
[2019-09-19] MEDS: ATORVASTATIN CALCIUM 40 MG TABLET PO SCH (21:13)
[2019-09-19] MEDS: LOSARTAN 100 MG TABLET PO SCH (21:13)
[2019-09-19] MEDS: CALCIUM 600 + VITAMIN D 400 TABLET PO SCH (21:13)
[2019-09-19] MEDS: VITAMIN E 400 UNIT CAPSULE PO SCH (21:13)
[2019-09-19] MEDS: FOLIC ACID 1 MG TABLET PO SCH (21:13)
[2019-09-19] MEDS: AMLODIPINE BESYLATE 5 MG TAB PO SCH (21:19)
[2019-09-20] VITALS (7 sets, daily range): BP systolic 125–167; BP diastolic 44–65
[2019-09-20] MEDS: IPRATROPIUM/ALBUTEROL SULFATE 3 ML SOLUTION IH SCH ×6 (01:36→21:59)
[2019-09-20 04:54] LABS: BASOPHILS % (AUTO) 0.4 % (0.0-5.0); EOSINOPHILS % (AUTO) 2.6 % (0.0-8.0); HEMATOCRIT 30.4 % (36-48); LYMPHOCYTES % (AUTO) 9.3 % (21.0-51.0); MEAN CORPUSCULAR HEMOGLOBIN 27.5 pg (27.0-33.0); MEAN CORPUSCULAR HGB CONC 31.3 g/dL (32.0-36.0); MEAN CORPUSCULAR VOLUME 88.1 fL (79-99); MONOCYTES % (AUTO) 8.7 % (3.0-13.0); NEUTROPHILS % (AUTO) 75.7 % (40.0-77.0); PLATELET COUNT (AUTO) 295 K/uL (130-400); RED BLOOD CELL COUNT(AUTO) 3.45 MIL/uL (4.00-5.50); RED CELL DISTRIBUTION WIDTH 13.4 % (11.0-15.5)
[2019-09-20 05:17] LABS: CREATININE 1.3 mg/dL (0.5-1.5); POTASSIUM 4.2 mmol/L (3.5-5.1)
[2019-09-20] MEDS: LEVOTHYROXINE 75 MCG TABLET PO SCH (06:20)
[2019-09-20] MEDS: BUDESONIDE 0.5 MG/2 ML INH IH SCH ×2 (06:41→19:03)
[2019-09-20] MEDS: LINEZOLID 600 MG/ISO-OSM 300 ML IV SCH ×2 (07:58→19:29)
[2019-09-20] MEDS: POTASSIUM CHLORIDE 20 MEQ ERTAB PO SCH (07:59)
[2019-09-20] MEDS: FAMOTIDINE 20MG TAB 20 MG TAB PO SCH ×2 (07:59→20:34)
[2019-09-20] MEDS: LABETALOL HCL 200 MG TABLET PO SCH ×2 (08:00→20:35)
[2019-09-20] MEDS: APIXABAN 5 MG TABLET PO SCH ×2 (08:01→20:37)
[2019-09-20] MEDS: AMLODIPINE BESYLATE 5 MG TAB PO SCH (20:35)
[2019-09-20] MEDS: LOSARTAN 100 MG TABLET PO SCH (20:35)
[2019-09-20] MEDS: CLOPIDOGREL BISULFATE 75 MG TAB PO SCH (20:36)
[2019-09-20] MEDS: ATORVASTATIN CALCIUM 40 MG TABLET PO SCH (20:36)
[2019-09-20] MEDS: CALCIUM 600 + VITAMIN D 400 TABLET PO SCH (20:36)
[2019-09-20] MEDS: FOLIC ACID 1 MG TABLET PO SCH (20:36)
[2019-09-20] MEDS: ***HM***(Cholecalciferol (Vitamin D3) 5,000 UNIT) PO SCH (20:37)
[2019-09-20] MEDS: VITAMIN E 400 UNIT CAPSULE PO SCH (20:43)
[2019-09-20] MEDS: DOCUSATE SODIUM 100 MG CAP PO SCH (20:50)
[2019-09-21] MEDS: IPRATROPIUM/ALBUTEROL SULFATE 3 ML SOLUTION IH SCH ×3 (02:50→11:09)
[2019-09-21 03:16] VITALS: BP 146/55
[2019-09-21 03:39] LABS: BASOPHILS % (AUTO) 0.5 % (0.0-5.0); EOSINOPHILS % (AUTO) 2.5 % (0.0-8.0); HEMATOCRIT 28.3 % (36-48); LYMPHOCYTES % (AUTO) 14.9 % (21.0-51.0); MEAN CORPUSCULAR HEMOGLOBIN 27.7 pg (27.0-33.0); MEAN CORPUSCULAR HGB CONC 31.8 g/dL (32.0-36.0); MEAN CORPUSCULAR VOLUME 87.1 fL (79-99); MONOCYTES % (AUTO) 7.5 % (3.0-13.0); NEUTROPHILS % (AUTO) 72.6 % (40.0-77.0); PLATELET COUNT (AUTO) 286 K/uL (130-400); RED BLOOD CELL COUNT(AUTO) 3.25 MIL/uL (4.00-5.50); RED CELL DISTRIBUTION WIDTH 13.5 % (11.0-15.5); WHITE BLOOD COUNT (AUTO) 6.5 K/uL (4.8-10.8)
[2019-09-21 03:48] LABS: CREATININE 1.3 mg/dL (0.5-1.5); POTASSIUM 4.4 mmol/L (3.5-5.1)
[2019-09-21] MEDS: LEVOTHYROXINE 75 MCG TABLET PO SCH (06:07)
[2019-09-21] MEDS: BUDESONIDE 0.5 MG/2 ML INH IH SCH ×2 (07:03→18:40)
[2019-09-21 08:15] VITALS: BP 128/53
[2019-09-21] MEDS: APIXABAN 5 MG TABLET PO SCH (08:53)
[2019-09-21] MEDS: LINEZOLID 600 MG/ISO-OSM 300 ML IV SCH (08:53)
[2019-09-21] MEDS: LABETALOL HCL 200 MG TABLET PO SCH (08:53)
[2019-09-21] MEDS: FAMOTIDINE 20MG TAB 20 MG TAB PO SCH (08:54)
[2019-09-21] MEDS: POTASSIUM CHLORIDE 20 MEQ ERTAB PO SCH (08:54)
[2019-09-21 11:44] VITALS: BP 154/68
--- NOTE | 2019-09-21 12:44 | NUR ---
DC PLAN ALEISHA HERNANDEZ CALLED SAID PATIENT ACCEPTED AT 1100. LET CHARGE NURSE KNOW AND KISS MIXER FOR DC ORDERS. YANIRA DONE WILL GO VIA FACILITY [facility]. Addendum: 09/21/19 at 1245 by YOLANDA DIEGO RN CM Amended: Links added.
--- NOTE | 2019-09-21 14:00 | NUR ---
REDNESS AND FIRM AREA NOTED TO RIGHT INNER THIGH AREA; XAVIER SAHU, NOTIFIED; PATIENT IS ASYMPTOMATIC; WARMTH ALSO NOTED; CAKE ICER STATED SHE WILL FOLLOW UP WITH PATIENT AT [facility] AFTER DC TODAY
[2019-09-21 16:11] VITALS: BP 152/56
[2019-09-21] MEDS ORDERED: IPRATROPIUM/ALBUTEROL SULFATE 3 ML SOLUTION IH SCH (18:00)
[2019-09-21 18:48] VITALS: BP 183/68
--- NOTE | 2019-09-21 19:00 | NUR ---
REPORT GIVEN TO MOWER MECHANIC NURSE; PATIENT PENDING TRANSPORT TO [facility] AT THIS TIME; PICTURE OF RIGHT INNER THIGH REDNESS TAKEN AND PLACED IN CHART; NO NEW PRESCRIPTIONS GIVEN; PATIENT TO GO TO [facility] WITH PIV IN PLACE; ALL DC INSTRUCTIONS GIVEN TO PATIENT, ALL QUESTIONS ANSWERED.
--- NOTE | 2019-09-21 20:31 | NUR ---
PT TRANSPORTED VIA WHEELCHAIR WITH EMPLOYEE FROM [employer]. PT WEARING MASK D/T PRODUCTIVE COUGH AND POSITIVE FOR FLU. OXYGEN VIA NC AT 1L. AAOX3. ALL BELONGINGS WERE TAKEN WITH HER. CHART IN YELLOW FOLDERS X2 GIVEN TO [employer] EMPLOYEE. PT LEFT WITH IV TO THE LEFT FOREARM. PT DENIES ANY PAIN OR DISCOMFORT.
== END 2019-09-21 20:30 | DRG 177 ==
LOC: EDH 17:44 → EDHIP 20:44 → 2AH 09-14 11:34
PROVIDERS: ADMIT Internal Medicine; ATTEND Internal Medicine
DX: J10.08 Influenza due to other identified influenza virus with other specified pneumonia (principal); J96.01 Acute respiratory failure with hypoxia; J15.212 Pneumonia due to Methicillin resistant Staphylococcus aureus; I26.99 Other pulmonary embolism without acute cor pulmonale; N39.0 Urinary tract infection, site not specified; E44.0 Moderate protein-calorie malnutrition; J44.1 Chronic obstructive pulmonary disease with (acute) exacerbation; J44.0 Chronic obstructive pulmonary disease with (acute) lower respiratory infection; D64.9 Anemia, unspecified; E78.5 Hyperlipidemia, unspecified; E87.6 Hypokalemia; G30.9 Alzheimer's disease, unspecified; F02.80 Dementia in other diseases classified elsewhere, unspecified severity, without behavioral disturbance, psychotic disturbance, mood disturbance, and anxiety; I12.9 Hypertensive chronic kidney disease with stage 1 through stage 4 chronic kidney disease, or unspecified chronic kidney disease; I25.10 Atherosclerotic heart disease of native coronary artery without angina pectoris; N18.9 Chronic kidney disease, unspecified; R62.7 Adult failure to thrive; C50.919 Malignant neoplasm of unspecified site of unspecified female breast; E03.9 Hypothyroidism, unspecified; Z68.21 Body mass index [BMI] 21.0-21.9, adult; Z80.3 Family history of malignant neoplasm of breast; Z87.891 Personal history of nicotine dependence; Z90.13 Acquired absence of bilateral breasts and nipples; Z95.5 Presence of coronary angioplasty implant and graft; Z82.3 Family history of stroke; Z82.49 Family history of ischemic heart disease and other diseases of the circulatory system; Z98.42 Cataract extraction status, left eye; Z98.41 Cataract extraction status, right eye; Z88.8 Allergy status to other drugs, medicaments and biological substances
CPT/HCPCS: 36415; 36600; 71045; 71275; 80048; 80053; 81001; 82040; 82550; 82803; 83605; 83735; 83874; 83880; 84100; 84145; 84484; 85025; 85027; 85378; 85610; 85730; 87040; 87071; 87077; 87088; 87186; 87205; 87804; 93005; 93306; 93970; 94640; 94664; 97039; 99291; A4344; G0378; J0360; J0456; J0696; J1644; J1650; J2020; J2405; J2920; J2930; J7030; Q9967